=== PATIENT | female | born 1930 | race American Indian/Alaskan Native ===

== ENCOUNTER 2016-12-31 09:14 | Inpatient (IN) | payer MEDICARE ==
[2016-12-31] MEDS ORDERED: TYLENOL PR STA (10:32)
[2016-12-31] MEDS ORDERED: NACL 0.9% 500 ML 500 ML IV ONE (10:32)
[2016-12-31 11:14] LABS: Hemoglobin 10.5 gm/dl (10.1-14.3); Mean Corpuscular HGB Conc 34 % (30-34); Mean Corpuscular Hemoglobin 28 pg (28-32); Mean Corpuscular Volume 81 fl (79-97); Red Blood Count 3.82 M/mm3 (3.65-5.03); Red Cell Distribution Width 16.5 % (13.2-15.2); White Blood Count 19.6 K/mm3 (4.5-11.0)
[2016-12-31 11:25] LABS: INR 1.49 (0.87-1.13)
--- NOTE | 2016-12-31 11:31 | Emergency Department Report ---
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 Family states that detention called her and told her that her mother was short of breath and had a temperature of 100.5. She denies any other symptoms. The patient is noncommunicative at baseline. Timing/Duration: just prior to arrival Fever Severity/Quality: greater than 102 F Associated Symptoms: denies symptoms ED Review of Systems ROS: Stated complaint: FEVER/CONGESTION Other details as noted in HPI Comment: Unobtainable due to pts medical conditions ED Past Medical Hx - Past Medical History Previous Medical History?: Yes Hx Hypertension: Yes Hx Diabetes: Yes Hx Renal Disease: Yes Hx Dementia: Yes - Surgical History Past Surgical History?: Yes Additional Surgical History: AV fistula L arm (no longer uses). Vas-Cath R upper chest. G-tube - Family History Family history: no significant - Social History Smoking Status: Never Smoker Substance Use Type: None - Medications Home Medications: Home Medications Medication Instructions Recorded Confirmed Last Taken Type Acetaminophen [Acetaminophen TAB] 650 mg FEEDTUBE Q4H PRN #30 tablet 04/03/16 Unknown Rx Epoetin Oswaldo 10,000 Unit [Procrit] 10,000 unit IV MoWeFr #1 vial 04/03/16 Unknown Rx Lipase/Protease/Amylase [Pancreaze 1 each FEEDTUBE PRN PRN #30 capsule 04/03/16 12/31/[address] 10,500 Unit] Sodium Bicarbonate 325 mg FEEDTUBE PRN PRN #30 tablet 04/03/16 12/31/16 Unknown Rx Ascorbic Acid [Vitamin C with Briseyda 500 mg PO DAILY 12/31/16 12/31/16 Unknown History Hips] Cinacalcet HCl [Sensipar] 60 mg PO QHS 12/31/16 12/31/16 Unknown History Insulin Lispro [Humalog 100 0 units SQ AC 12/31/16 12/31/16 Unknown History UNITS/ML Kwikpen] Insulin NPH/Regular [Novolin 70/30] 100 unit SQ BID 12/31/16 12/31/16 Unknown History Omeprazole 40 mg PO QAM 12/31/16 12/31/16 Unknown History ED Physical Exam - General Limitations: No Limitations General appearance: alert, in no apparent distress - Head Head exam: Present: atraumatic, normocephalic - Eye Eye exam: Present: normal appearance. Absent: scleral icterus - ENT ENT exam: Present: mucous membranes moist - Neck Neck exam: Present: normal inspection - Respiratory Respiratory exam: Present: normal lung sounds bilaterally. Absent: respiratory distress, wheezes, rales - Cardiovascular Cardiovascular Exam: Present: regular rate, normal rhythm, tachycardia, other ( right upper chest wall vascular catheter). Absent: systolic murmur, diastolic murmur, rubs, gallop - GI/Abdominal GI/Abdominal exam: Present: soft, normal bowel sounds - Extremities Exam Extremities exam: Present: normal inspection, other (both heels in [place]na boots) - Neurological Exam Neurological exam: Present: alert, oriented X3 - Psychiatric Psychiatric exam: Present: other (unable to assess) - Skin Skin exam: Present: warm, dry, intact, normal color. Absent: rash ED Course Vital Signs 12/31/16 12/31/16 12/31/16 09:34 09:40 09:50 Temperature Pulse Rate 127 H 120 H Respiratory 25 H Rate Blood Pressure 134/53 134/53 134/53 O2 Sat by Pulse 89 Oximetry 12/31/16 12/31/16 12/31/16 10:00 10:10 10:12 Temperature 104.2 F H Pulse Rate 120 H 121 H 120 H Respiratory 37 H 28 H Rate Blood Pressure 121/81 132/64 O2 Sat by Pulse 100 98 84 Oximetry 12/31/16 12/31/16 12/31/16 10:20 10:30 10:40 Temperature Pulse Rate 126 H 124 H 124 H Respiratory 21 22 36 H Rate Blood Pressure 143/72 143/72 146/73 O2 Sat by Pulse 91 91 78 L Oximetry 12/31/16 12/31/16 12/31/16 10:50 10:53 11:00 Temperature Pulse Rate 117 H 116 H Respiratory 32 H 24 33 H Rate Blood Pressure 125/63 125/63 O2 Sat by Pulse 91 84 100 Oximetry 12/31/16 12/31/16 12/31/16 11:10 11:20 11:30 Temperature Pulse Rate 114 H 116 H 115 H Respiratory 37 H 34 H 33 H Rate Blood Pressure 125/63 125/63 125/63 O2 Sat by Pulse 100 90 Oximetry 12/31/16 12/31/16 12/31/16 11:40 11:50 12:00 Temperature Pulse Rate 116 H 114 H 111 H Respiratory 36 H 33 H 32 H Rate Blood Pressure 125/63 98/47 98/47 O2 Sat by Pulse 100 100 100 Oximetry 12/31/16 12/31/16 12/31/16 12:12 12:16 12:21 Temperature 102.2 F H Pulse Rate 112 H 128 H 107 H Respiratory 31 H 33 H Rate Blood Pressure 125/63 89/47 O2 Sat by Pulse 100 100 Oximetry 12/31/16 12/31/16 12:30 12:41 Temperature Pulse Rate 107 H 107 H Respiratory 31 H 33 H Rate Blood Pressure 84/44 84/44 O2 Sat by Pulse 100 Oximetry ED Medical Decision Making - Lab Data Result diagrams: 12/31/16 10:58 12/31/16 12:48 Patient is an 86-year-old female with fever and shortness of breath. Suspect some sort of infection. Plan to initiate sepsis protocol. The patient is an end-stage renal disease patient and will likely need to limit fluids. Do not plan to give him 30 mL/kg fluid bolus, especially given that the patient is a DO NOT RESUSCITATE. I discussed the possibility of placing a central line with the family and they would prefer to defer that unless absolutely necessary. Critical Care Time: Yes Critical care attestation.: If time is entered above; I have spent that time in minutes in the direct care of this critically ill patient, excluding procedure time. Critical Care Time: 45 minutes ED Disposition Clinical Impression: Mental status, decreased, Sepsis, Dementia, ESRD (end stage renal disease) on dialysis Disposition: OP ADMIT IP TO THIS HOSP Is pt being admited?: Yes Condition: Critical Referrals: PRIMARY CARE, [Primary Care Provider] - 3-5 Days
[2016-12-31] MEDS ORDERED: VANCOMYCIN/NS 1 GM/250 ML 1 GM/250 ML BAG IV ONE (11:32)
[2016-12-31] MEDS ORDERED: NACL 0.9% 1000 ML 1,000 ML IV ONE (11:32)
[2016-12-31 11:45] LABS: Chloride TNR mmol/L (98-107); Potassium TNR mmol/L (3.6-5.0); Sodium TNR mmol/L (137-145)
[2016-12-31 11:46] LABS: Anion Gap TNR mmol/L; BUN/Creatinine Ratio TNR; Blood Urea Nitrogen TNR mg/dL (7-17); Calcium TNR mg/dL (8.4-10.2); Carbon Dioxide TNR mmol/L (22-30); Glucose TNR mg/dL (65-100)
[2016-12-31 11:47] LABS: Alanine Aminotransferase TNR units/L (7-56); Albumin TNR g/dL (3.9-5); Albumin/Globulin Ratio TNR %; Alkaline Phosphatase TNR units/L (35-129); Bilirubin,Total TNR mg/dL (0.1-1.2); Total Protein TNR g/dL (6.3-8.2)
[2016-12-31 12:03] LABS: Basophils % (Manual) 0 % (0.0-1.8); Blastocytes % (Manual) 0 %; Eosinophils % (Manual) 0 % (0.0-4.3)
[2016-12-31 12:04] LABS: Anisocytosis Few; Diff Status Complete
[2016-12-31 12:08] LABS: Platelet Count 151 K/mm3 (140-440)
--- NOTE | 2016-12-31 12:08 | XRay Report ---
Portable chest: Fever. There is a Vas-Cath entering the right jugular vein with tips in the SVC and possible right atrium. The heart is questionably enlarged but could be exaggerated by positioning. The lungs are clear. There is no vascular congestion. These findings appears essentially unchanged compared to March 30, 2016. Impression: No acute pathology identified.
[2016-12-31] MEDS ORDERED: MILK OF MAGNESIA PO PRN (12:51)
[2016-12-31] MEDS ORDERED: PROVENTIL IH PRN (12:51)
[2016-12-31] MEDS ORDERED: ZOFRAN IV PRN (12:51)
[2016-12-31] MEDS ORDERED: TYLENOL PO PRN (12:51)
[2016-12-31] MEDS ORDERED: MORPHINE IV PRN (12:51)
[2016-12-31] MEDS ORDERED: DULCOLAX PR PRN (12:51)
[2016-12-31] MEDS ORDERED: VANCOMYCIN VIAL IV ONE (12:54)
[2016-12-31] MEDS ORDERED: NACL 0.9% 1000 ML IV ONE (12:54)
[2016-12-31] MEDS ORDERED: VANCOMYCIN PHARMACY TO DOSE IV SCH (13:00)
--- NOTE | 2016-12-31 13:16 | Admit Criteria Form ---
Admission Criteria Documentation: SEVERE SEPSIS Clinical Indications for Admission to Inpatient Care (Place 'X' for any and all applicable criteria): Hospital admission is needed for appropriate care of the patient because of ANY ONE of the following: [X]I. Hemodynamic instability indicated by ANY ONE of the following(1)(2)(3)( 4)(5): [X]a. Vital sign abnormality not readily corrected by appropriate treatment within 12 to 24 hours indicated by ANY ONE of the following: []i) Tachycardia that persists despite appropriate treatment [X]ii) Hypotension that persists despite appropriate treatment []iii) Orthostatic vital sign changes that persist despite appropriate treatment [X]b. Vital sign abnormality that is severe indicated by ANY ONE of the following: [X]i. Inadequate perfusion indicated by ANY ONE of the following: [X]1) Lactic acidosis (greater than 2 mmol/L) []2) New abnormal capillary refill (greater than 3 seconds) []3) Reduced urine output []4) New altered mental status []5) Myocardial Ischemia [X]ii. Mean arterial pressure [A] less than 60 mm Hg []iii. Mean arterial pressure[A] less than 70 mm Hg after 30 minutes of appropriate treatment (eg, fluid resuscitation) []iv. Sustained heart rate greater than 120 beats per minute in adult []v. IV inotropic or vasopressor medication required to maintain adequate blood pressure or perfusion []II. Systemic or infectious condition causing severe symptoms or findings not responsive to emergency or observation care treatment (as appropriate) indicated by ANY ONE of the following: []a. Cardiac arrhythmias of immediate concern(1)(2)(3) []b. Severe endocrine disorder (eg, thyrotoxicosis, adrenal insufficiency)(4)(5) []c. Seizures (eg, new or recurrent)(6) []d. New-onset end organ failure or dysfunction as indicated by ANY ONE of the following: []i. Acute unexplained hypoxemia (eg, not from lung infection or chronic disease)(7)(8)(9) []ii. Acute renal failure as indicated by new onset of ANY ONE of the following(10)(11)(12)(13)(14): []1) 3-fold rise in serum creatinine from baseline []2) Serum creatinine greater than 4 mg/dL (354 micromoles/L) with acute rise greater than 0.5 mg/dL (44.2 micromoles/L) []3) Reduction of more than 75% in estimated glomerular filtration rate from baseline. []4) Estimated glomerular filtration rate less than 35 mL/min/1.73m2 ( 0.59 mL/sec/1.73m2) in child younger than 18 years. []5) Cessation of urine output indicated by ALL of the following: []A. Adequate volume status []B. Inadequate urine output as indicated by ANY ONE of the following: []a. Urine output less than 0.3 mL/kg/hr for 24 hours []b. Anuria (urine output less than 0.1 mL/kg/hr) for 12 hours []iii. Acute mental status changes(15) []iv. Acute hepatic failure (eg, plasma bilirubin greater than 4 mg/ dL (68 micromoles/L), new INR greater than 2.0)(16)(17) []e. Unmanageable nausea and vomiting(18) []f. New-onset or uncontrolled central diabetes insipidus(19)(20) []g. Clinically significant dehydration(18)(21) []h. Hypoglycemia(22) []i. Acidosis (pH less than 7.35) or alkalosis (pH greater than 7.45)( 22)(23) []j. Toxic drug level that indicates need for specific monitoring or treatment(24)(25) []k. Severe electrolyte abnormalities indicated by ALL of the following( 1)(2)(3): []i. Electrolytes and associated findings are not as expected for patient baseline or acceptable treatment effects. []ii. Severe abnormalities indicated by ANY ONE of the following: []1) Sodium less than 130 mEq/L (mmol/L) (new) []2) Sodium less than 135 mEq/L (mmol/L) with ANY ONE of the following: []A. Uncorrectable (to near normal or chronic baseline) after trial of outpatient and emergency treatment []B. Altered mental status []C. Seizures []D. Severe medical etiology requiring inpatient management (eg , heart failure, hypovolemia) []3) Sodium greater than 155 mEq/L (mmol/L) []4) Sodium greater than 150 mEq/L (mmol/L) with ANY ONE of the following: []A. Uncorrectable (to near normal or chronic baseline) with outpatient and emergency treatment []B. Altered mental status []C. Seizures []D. Severe medical etiology (eg, hypovolemia, diabetes insipidus) []5) Potassium less than 2.5 mEq/L (mmol/L) despite outpatient and emergency treatment []6) Potassium less than 3 mEq/L (mmol/L) with ANY ONE of the following : []A. Weakness []B. Cardiac abnormality (eg, arrhythmia, conduction disturbance ) []C. Cardiac ischemia []D. Ileus []E. Ongoing medical cause requiring inpatient management (eg, acute renal wasting or SIADH) []F. Other severe symptoms []7) Potassium greater than 6.5 mEq/L (mmol/L) []8) Potassium greater than 5 mEq/L (mmol/L) with ANY ONE of the following: []A. Uncorrectable (to near normal or chronic baseline) with outpatient and emergency treatment []B. Severe ECG findings[A] []C. Acute worsening of renal failure (creatinine greater than 2.5 mg/dL (221 micromoles/L) or significant elevation for age and size) []D. Severe weakness []E. Severe medical etiology (eg, hemolysis, infection, drug overdose) []9) Calcium less than 7 mg/dL (1.75 mmol/L) despite outpatient and emergency treatment(5) []10) Calcium less than 8 mg/dL (2 mmol/L) with significant symptoms or findings (eg, altered mental status, muscle spasms, seizures, breathing difficulty, cardiac abnormality (eg, arrhythmia or conduction disturbance))(5) []11) Calcium greater than 14 mg/dL (3.5 mmol/L)(5) []12) Calcium greater than 12 mg/dL (3 mmol/L) with ANY ONE of the following(5): []A. Uncorrectable (to near normal or chronic baseline) with outpatient and emergency treatment []B. Significant dehydration or hypovolemia as indicated by ALL of the following(3)(6)(7): []a. Not resolved with initial treatments []b. Clinically significant dehydration as indicated by ANY ONE of the following: [](1) Vomiting refractory to outpatient treatment (ie, precluding oral rehydration) [](2) Inability to drink [](3) Hypernatremia or other electrolyte abnormality unable to be corrected with outpatient and emergency treatment [](4) Failure to remain hydrated with outpatient therapy [](5) Reduced urine output [](6) Hypotension [](7) Serious cause for dehydration requiring acute hospitalization ( eg, bowel obstruction, increased intracranial pressure, infectious cause) [](8) Child with ANY ONE of the following(8): [](i) Severe abdominal tenderness [](ii) Adequate care not available at home [](iii) Severe dehydration (greater than 9% loss of body weight) []C. Significant symptoms or findings (eg, altered mental status , cardiac abnormality (eg, arrhythmia, conduction disturbance), malignant etiology requiring inpatient treatment) []13) Phosphorus less than 1 mg/dL (0.32 mmol/L) []14) Phosphorus less than 1.5 mg/dL (0.48 mmol/L) with ANY ONE of the following: []A. Patient unresponsive to outpatient and emergency treatment []B. Significant symptoms or findings (eg, weakness, altered mental status, breathing difficulty, seizures, rhabdomyolysis) []15) Phosphorus greater than 10 mg/dL (3.2 mmol/L) []16) Phosphorus greater than 4.5 mg/dL (1.45 mmol/L) (new) with ANY ONE of the following: []A. Severe medical etiology (eg, crush injury, acute renal failure) []B. Associated hypocalcemia with significant findings (eg, neurologic symptoms, altered mental status, muscle spasms, seizures, breathing difficulty, cardiac abnormality (eg, arrhythmia, conduction disturbance)) []16) Magnesium less than 1 mg/dL (0.41 mmol/L) []17) Magnesium less than 1.5 mg/dL (0.62 mmol/L) with ANY ONE of the following: []A. Patient unresponsive to outpatient and emergency treatment []B. Associated hypocalcemia with significant findings (eg, altered mental status, muscle spasms, seizures, breathing difficulty, cardiac abnormality (eg, arrhythmia, conduction disturbance)) []C. Associated hypokalemia (potassium less than 3 mEq/L (mmol/L )) with risk of arrhythmia []18) Magnesium greater than 4 mEq/L (2 mmol/L) []19) Magnesium greater than 2.5 mEq/L (1.25 mmol/L) with significant symptoms or findings (eg, weakness, altered mental status, cardiac abnormality (eg, arrhythmia, conduction disturbance), breathing difficulty, severe medical etiology (eg, renal failure, hypovolemia)) []20) Uric acid greater than 20 mg/dL (1190 micromoles/L)(9) []21) Uric acid greater than 8 mg/dL (476 micromoles/L) with significant symptoms or findings of tumor lysis syndrome (eg, creatinine greater than 1.5 times upper limit of normal, cardiac abnormality (eg , arrhythmia, conduction disturbance), seizure)(9) [X]III. High fever or other high-risk infection situation as indicated by ANY ONE of the following(26)(27)(28): []a. Outpatient and observation care antimicrobial treatment unavailable, not effective, or not appropriate []b. Documented bacteremia []c. Temperature greater than 104.9 degrees F (40.5 degrees C) (oral) [X]d. Temperature greater than 103.1 degrees F (39.5 degrees C) (oral) or less than 96.8 degrees F (36 degrees C) (rectal) that does not respond to emergency treatment and observation care []IV. High-risk febrile neutropenia[A] as indicated by ANY ONE of the following(29)(30)(31)(32): []a. Profound neutropenia[B] anticipated to extend for more than 7 days []b. Hemodynamic instability []c. Hypoxemia []d. Tachypnea []e. Altered mental status []f. New-onset abdominal pain []g. New-onset vomiting or diarrhea []h. Oral or gastrointestinal mucositis that interferes with swallowing or causes severe diarrhea []i. Focal infection (eg, cellulitis, pneumonia, central line or catheter infection, perirectal abscess) []j. Renal insufficiency (eg, GFR of less than 30 mL/min/1.73m2 (0.5 mL/sec /1.73m2)). []k. Severe liver dysfunction (transaminase levels greater than 5 times normal) []l. Platelet count less than 50,000/mm3 (50 x109/L)(33) []m. Leukemia or lymphoma induction therapy []n. Leukemia not in complete remission or with evidence of disease progression []o. Bone marrow transplant patient []p. Alemtuzumab being used for therapy []q. [employer] Association for Supportive Care in Cancer (MASCC) Risk Index score of less than 21[C](33)(35). []V. Isolation required (eg, tuberculosis that requires isolation, Ebola infection)[D](36)(37)(38)(39)(40) []. Gangrene that requires treatment beyond emergency or observation level care(41)(42) []VII. Antitoxin administration and ongoing observation required (eg, tetanus, botulism)(43)(44) []. Suspected infection with rapid progression or severe symptoms as indicated by ANY ONE of the following(45): []a. Streptococcal or staphylococcal toxic shock(46) []b. Diphtheria(47) []c. Hantavirus(48) []d. Severe acute respiratory syndrome(8)(49) []e. Anthrax(50) []f. Ebola[D](36)(37)(38) []g. Necrotizing soft tissue infection(41)(42) []h. Plague(50) []i. Other suspected infection that requires care beyond emergency or observation level care []VII. Severe adverse drug or systemic toxin reaction as indicated by ANY ONE of the following(24): []a. Serotonin syndrome(51)(52) []b. Neuroleptic malignant syndrome(51)(52) []c. Cholinergic syndrome with severe symptoms (eg, bronchorrhea, weakness , mental status changes, seizures)(53) []d. Anticholinergic syndrome []e. Sympathetic syndrome with severe symptoms (eg, seizures, mental status changes, cardiac dysrhythmias) []f. Other severe adverse drug or systemic toxin reaction that remains after emergency or observation level care (as appropriate) []VIII. Allergic reaction with severe symptoms (not responsive to emergency or observation care treatment as appropriate), including ANY ONE of the following(54): []a. Airway edema (pharyngeal, epiglottic, or laryngeal edema) []b. Stridor []c. Respiratory failure []d. Bronchospasm []e. Hypotension []IX. Environmental emergency (not responsive to emergency or observation care treatment as appropriate) as indicated by ANY ONE of the following(55)(56): []a. Hyperthermia []b. Heat stroke []c. Heat exhaustion []d. Hypothermia (temperature less than 95 degrees F (35 degrees C) rectal) (57) []e. Electrocution(58) []X. Complications of transplanted organ (ie, not covered elsewhere)[E] indicated by ANY ONE of the following(59): []a. Acute graft rejection (or graft vs. host disease)[F] requiring inpatient management (eg, intravenous immunosuppression)(60)(61)(62)( 63) []b. Acute failure of transplanted organ necessitating inpatient care (eg, cannot be managed in other setting) []c. Infection requiring inpatient management (eg, Hemodynamic instability, need for intravenous antimicrobial treatment)(64)(65) []d. Other complication of transplanted organ requiring inpatient management []XI. Systemic or Infectious Condition condition, symptom, or finding for which emergency and observation care have failed or are not considered appropriate. See General Criteria: Observation Care, General Admission Criteria or Pediatric General Admission Criteria guideline as appropriate. (Contents from SEVERE SEPSIS and SYSTEMIC OR INFECTIOUS CONDITION clinical indications for admission to inpatient care have been integrated in this form) The original [facility] content [facility] by [facility] has been revised. The portions of the content which have been revised are identified through the use of italic text or in bold and [facility] has neither reviewed nor approved the modified material. All other unmodified content is copyright [facility]. Please see references footnoted in the original [facility] edition 2016 Admission Criteria Met: Yes
[2016-12-31 13:20] LABS: Albumin 3.1 g/dL (3.9-5); Albumin/Globulin Ratio 0.8 %; BUN/Creatinine Ratio 10.3; Bilirubin,Total 0.4 mg/dL (0.1-1.2); Calcium 8.8 mg/dL (8.4-10.2); Potassium 5.2 mmol/L (3.6-5.0); Total Protein 7.1 g/dL (6.3-8.2)
[2016-12-31] MEDS: ZOSYN/NS 4.5GM/100ML 4.5 GM/100 ML VIAL IV ONE ×2 (13:22→16:05)
[2016-12-31] MEDS ORDERED: D50W (25GM) IV ONE ×2 (13:48→14:22)
[2016-12-31] MEDS ORDERED: ZOSYN/NS 4.5GM/100ML 4.5 GM/100 ML VIAL IV SCH (14:00)
[2016-12-31] MEDS ORDERED: TYLENOL PR ONE (14:12)
--- NOTE | 2016-12-31 14:42 | History and Physical Report ---
History of Present Illness Date of admission: 12/31/16 12:51 Chief complaint: Unresponsive History of present illness: 86 YO Female with HTN, DM, ESRD not undergoing dialysis, Dementia presents to ED for evaluation. Pt is nonverbal, encephalopathic and chronically ill appearing. Pt seen and evaluated in ED and found to have sepsis. Pt unable to provide history, but history taken from family and ED staff. Pt initially treated with sepsis protocol. Pt poor prognosis discussed with family and family elects to make patient DNR and request inpatient Hospice care, due to inability to care for patient at home. Pt subsequently transferred to inpatient hospice as per family request. Past History Past Medical History: diabetes, hypertension, other Past Surgical History: Other (G tube,Vas cath, left AVF) Social history: . denies: smoking, alcohol abuse, prescription drug abuse Family history: hypertension Medications and Allergies Allergies Allergy/AdvReac Type Severity Reaction Status Date / Time No Known Allergies Allergy Unverified 01/06/14 12:04 Home Medications Medication Instructions Recorded Confirmed Last Taken Type Acetaminophen [Acetaminophen TAB] 650 mg FEEDTUBE Q4H PRN #30 tablet 04/03/16 Unknown Rx Epoetin Oswaldo 10,000 Unit [Procrit] 10,000 unit IV MoWeFr #1 vial 04/03/16 Unknown Rx Lipase/Protease/Amylase [Pancreaze 1 each FEEDTUBE PRN PRN #30 capsule 04/03/16 12/31/16 Unknown Rx 10,500 Unit] Sodium Bicarbonate 325 mg FEEDTUBE PRN PRN #30 tablet 04/03/16 12/31/16 Unknown Rx Ascorbic Acid [Vitamin C with Briseyda 500 mg PO DAILY 12/31/16 12/31/16 Unknown History Hips] Cinacalcet HCl [Sensipar] 60 mg PO QHS 12/31/16 12/31/16 Unknown History Insulin Lispro [Humalog 100 0 units SQ AC 12/31/16 12/31/16 Unknown History UNITS/ML Kwikpen] Insulin NPH/Regular [Novolin 70/30] 100 unit SQ BID 12/31/16 12/31/16 Unknown History Omeprazole 40 mg PO QAM 12/31/16 12/31/16 Unknown History Active Meds: Active Medications Acetaminophen (Tylenol) 650 mg PO Q4H PRN PRN Reason: Pain MILD(1-3)/Fever >100.5/SOTELO Albuterol (Proventil) 2.5 mg IH Q4HRT PRN PRN Reason: Shortness Of Breath Bisacodyl (Dulcolax) 10 mg NE QDAY PRN PRN Reason: Constipation unrelieved by MOM Piperacillin Sod/Tazobactam Sod (Zosyn/Ns 2.25 Gm/50ml) 2.25 gm in 50 mls @ 100 mls/hr IV Q8H SERGIO Magnesium Hydroxide (Milk Of Magnesia) 30 ml PO Q4H PRN PRN Reason: Constipation Morphine Sulfate (Morphine) 2 mg IV Q4H PRN PRN Reason: Pain, Moderate (4-6) Ondansetron HCl (Zofran) 4 mg IV Q8H PRN PRN Reason: N/V unrelieved by Reglan Vancomycin HCl (Vancomycin Pharmacy To Dose) 1 each IV PKCONSULT SERGIO PRN Reason: Protocol Review of Systems ROS unobtainable: due to mental status Exam - Constitutional Vitals: Temp Pulse Resp BP Pulse Ox 99.3 F 106 H 32 H 108/59 100 12/31/16 14:00 12/31/16 14:05 12/31/16 14:00 12/31/16 14:00 12/31/16 14:00 General appearance: Present: severe distress - EENT ENT: no hearing intact - Neck Neck: Present: supple, normal ROM - Respiratory Respiratory effort: labored Respiratory: bilateral: diminished - Cardiovascular Heart Sounds: Present: S1 & S2. Absent: rub, click - Extremities Extremities: pulses symmetrical, No edema Peripheral Pulses: within normal limits - Abdominal General gastrointestinal: Present: soft, non-tender, non-distended, normal bowel sounds Female genitourinary: Present: normal - Integumentary Integumentary: Present: clear, dry, clammy, pale, decreased turgor - Musculoskeletal Musculoskeletal: generalized weakness - Psychiatric Psychiatric: no intact judgment & insight, no memory intact - Neurologic Neurologic: focal deficits, moves all extremities, no gait normal Results - Labs CBC & Chem 7: 12/31/16 10:58 12/31/16 12:48 Labs: Abnormal lab results 12/31/16 Range/Units 14:17 POC Glucose 207 H (70-105) Assessment and Plan - Patient Problems (1) Sepsis Current Visit: Yes Status: Acute Qualifiers: Sepsis type: S Plan to address problem: Poor prognosis, Pt family elects to have inpatient hospice care. Hospice consulted, Pt discharged to inpatient hospice care. (2) Dementia Onset Date: 01/07/14 Current Visit: Yes Status: Chronic Qualifiers: Dementia type: D Alzheimer's disease onset: A Dementia behavioral disturbance: D Plan to address problem: supportive care, (3) ESRD (end stage renal disease) on dialysis Current Visit: Yes Status: Chronic Plan to address problem: Pt family declines dialysis. (4) Toxic encephalopathy Current Visit: Yes Status: Acute Plan to address problem: Pt stuporous, secondary to severe sepsis. (5) DVT prophylaxis Current Visit: No Status: Acute
[2016-12-31] MEDS ORDERED: ZOSYN/NS 4.5GM/100ML 4.5 GM/100 ML VIAL IV ONE (15:50)
[2016-12-31 17:21] VITALS: BP 110/61
[2016-12-31] MEDS ORDERED: ZOSYN/NS 2.25 GM/50ML 2.25 GM/50 ML BAG IV SCH (20:00)
== END 2016-12-31 18:36 | disposition hospice, home (50) | DRG 871 ==
LOC: ED 09:14 → 3A 12:51
PROVIDERS: ADMIT Internal Medicine; ATTEND Internal Medicine
DX: A41.9 Sepsis, unspecified organism (principal); N18.6 End stage renal disease; G92 Toxic encephalopathy; I12.0 Hypertensive chronic kidney disease with stage 5 chronic kidney disease or end stage renal disease; F03.90 Unspecified dementia, unspecified severity, without behavioral disturbance, psychotic disturbance, mood disturbance, and anxiety; Z66 Do not resuscitate; E11.22 Type 2 diabetes mellitus with diabetic chronic kidney disease; Z99.2 Dependence on renal dialysis; Z82.49 Family history of ischemic heart disease and other diseases of the circulatory system
CPT/HCPCS: 36415; 71010; 80053; 80061; 82140; 82805; 82962; 84484; 85007; 85025; 85610; 86850; 86900; 86901; 87040; 93005; 93010; 96365; 96367; J2543; J3370; J7030; J7040